=== PATIENT | female | born 1940 | race Caucasian/White ===

== ENCOUNTER → 2016-11-13 | Outpatient (CLI) | payer MEDICARE ==
--- NOTE | 2016-11-14 09:30 | RAD ---
EXAM DESCRIPTION: Pelvis CLINICAL HISTORY: 76 years Female, PAIN IN LEFT HIP COMPARISON: None. FINDINGS: Right total hip replacement is present with modest degenerative change of the left hip. The right pubic symphysis and pubic ramus is unremarkable with sclerosis and deformity and subtle lucency at the junction of the left pubic ramus and symphysis suggesting an incompletely healed fracture. Alignment is essentially anatomic. The bony pelvic ring is otherwise intact. IMPRESSION: Degenerative left hip with incompletely healed fracture at the junction of the left pubic ramus and symphysis pubis. Electronically signed by: Franklin Odom MD 11/14/2016 9:29 AM CDT
--- NOTE | 2016-11-14 09:30 | RAD ---
EXAM DESCRIPTION: Hip,Left 2 Views CLINICAL HISTORY: PAIN IN LEFT HIP COMPARISON: None Available. TECHNIQUE: AP/frog leg lateral FINDINGS: Mild hypertrophic degenerative lipping at the lateral and inferior margins of the femoral head is present with mild joint space narrowing and acetabular roof sclerosis consistent with degenerative disease. No fracture or dislocation is noted. Right hip is surgically replaced. The pubic ramus areas abnormal with sclerosis and very subtle deformity suggesting an incompletely healed fracture of the junction of the pubic ramus and the symphysis pubis. The ischium appears intact. IMPRESSION: Degenerative left hip without fracture with abnormal left symphysis pubis suggesting an incompletely healed fracture. Electronically signed by: Franklin Odom MD 11/14/2016 9:27 AM CDT
== END | disposition home or self-care (01) ==
LOC: RAD 09:34
PROVIDERS: ATTEND Orthopaedic Surgery
DX: M25.552 Pain in left hip (principal)

== ENCOUNTER 2016-11-21 05:55 | Day surgery (SDC) | payer MEDICARE, OTHER ==
[2016-11-21] MEDS ORDERED: LACTATED RINGERS 1,000 ML ONE (06:58)
[2016-11-21] MEDS ORDERED: methylPREDNISolone ACETATE 80 MG/ML VIAL ONE (07:22)
[2016-11-21] MEDS ORDERED: LIDOCAINE 1% 50 ML VIAL INJ ONE (07:22)
[2016-11-21] MEDS ORDERED: BUPIVACAINE 0.25% W/EPI 50 ML VIAL INJ ONE (07:22)
[2016-11-21] MEDS ORDERED: fentaNYL CITRATE INJ 50 MCG/ML AMP ONE (08:24)
[2016-11-21 09:13] VITALS: O2SAT 96
[2016-11-21 10:11] VITALS: BP 113/77; TEMP 97
[2016-11-21] MEDS ORDERED: PROPOFOL 200 MG/20 ML VIAL IV ONE (12:00)
[2016-11-21] MEDS ORDERED: LIDOCAINE 1% 10 ML VIAL INJ ONE (12:00)
--- NOTE | 2016-12-12 08:25 | OP ---
DATE OF PROCEDURE: 11/21/16 PREOPERATIVE DIAGNOSIS: 1. Hip osteoarthritis. POSTOPERATIVE DIAGNOSIS: 1. Hip osteoarthritis. PROCEDURE: 1. Injection under anesthesia. SURGEON: Marcus Rodriguez MD. HEAVY FORGING MACHINE OPERATOR: Carlos Villela CST, SA-C. ANESTHESIA: Conscious sedation. COMPLICATIONS: None. FINDINGS: Advanced arthritis of the hip. INDICATION: Ms. Frye has a history of hip pain with progressively worsening arthritis. Ms. Frye has had hip replacement done on the contralateral side. She complains of pain on a daily basis that disrupts her activities. She has requested injection. After discussing the risks, benefits and alternatives to that, the patient has given informed consent. PROCEDURE: The patient was brought to the Operating Room and placed in supine position. Sedation was administered. The groin was sterilely prepped. Following prepping and draping, an 18-gauge needle was passed under fluoroscopic imaging. Once the needle had been confirmed to be in the joint, a mixture of lidocaine and Depo-Medrol was injected. Following that, the needle was withdrawn. Pressure was held and dressing was placed. The patient was then taken back to the Day Surgery Unit. POSTOPERATIVE INSTRUCTIONS: The patient will be weight-bearing as tolerated on postoperative day 0. #[id number] MTDD
== END 2016-11-21 10:00 | disposition home or self-care (01) ==
LOC: AMB 05:55
PROVIDERS: ATTEND Orthopaedic Surgery
DX: M16.12 Unilateral primary osteoarthritis, left hip (principal); I10 Essential (primary) hypertension; I25.10 Atherosclerotic heart disease of native coronary artery without angina pectoris; K21.9 Gastro-esophageal reflux disease without esophagitis; J44.9 Chronic obstructive pulmonary disease, unspecified; F17.210 Nicotine dependence, cigarettes, uncomplicated; F32.9 Major depressive disorder, single episode, unspecified; Z96.641 Presence of right artificial hip joint; Z88.5 Allergy status to narcotic agent; Z88.8 Allergy status to other drugs, medicaments and biological substances; Z79.899 Other long term (current) drug therapy
CPT/HCPCS: 01200; 20610; 87070; J1030; J3010; J3490; J7120

== ENCOUNTER → 2017-06-28 | Outpatient (CLI) | payer MEDICARE, OTHER ==
--- NOTE | 2017-07-01 10:31 | CT ---
EXAM DESCRIPTION: Abdomen/Pelvis w/wo Contrast: Computed Tomography. CLINICAL HISTORY: HISTORY OF HEMATURIA COMPARISON: None. TECHNIQUE: Spiral-axial scans at 5.0 mm intervals through the abdomen and pelvis before and after standard dose nonionic IV contrast. No oral contrast. Coronal and sagittal 2.0 mm reconstructions. 5 mm Delayed helical-axial scans, liver through the pubic symphysis. No adverse reactions. Total Exam DLP 99.07 mGy - cm. This exam was performed according to our departmental CT dose-optimization program which includes automated exposure control, adjustment of the mA and/or kV according to patient size and/or use of iterative reconstruction technique; to reduce radiation dose to as low as reasonably achievable (ALARA). FINDINGS: Lung bases and pleura: Minimal patchy infiltrate in a tree-in-bud pattern in the left lower lobe. Liver, Stomach, Spleen, Adrenal Glands: Long axis right lobe liver 15.5 cm. Diffuse low-density. No focal lesions. Minimal distention of stomach with fluid. Other solid organs are negative. Pancreas, Gallbladder, Ducts: Gallbladder visualized. Dilated. Pancreas negative. Kidneys and Ureters: Lobulation of the cortex of the right kidney and multi-focal areas of thinning. Cyst upper poles of both kidneys. No stones hydronephrosis or perinephric fluid. Mesentery: The fluid in the pelvis but not ascites. No free air. No stranding. Aorta: Moderate to severe atherosclerotic calcification mid and distal with multiple areas of intimal wall thickening. Darker segment of wall thickening beginning at the level of the right renal artery extending inferiorly on the right lateral wall of the aorta. IVC filter tip apex at the level of the lor and intravenous into the medial liver. Small Soco minimal distention by gas proximally with fluid more distally. Question of mucosal wall thickening and distention of the distal small bowel. Terminal Ileum/Cecum: Minimal distention of the cecum by fecal matter. Minimal distention of the TI. Appendix not seen. Normal density of the surrounding fat. Colon: Distention and descending colon with fecal matter. Gas and fecal material in the transverse colon and descending colon. Moderate redundancy of the sigmoid colon. Pelvic Organs: Fluid in the cul-de-sac. Uterus is retroverted and deviated to the right of midline. Urinary bladder distended no definite stones. However only minimal contrast on delayed images. Pelvic organ evaluation is limited due to artifact from right total hip arthroplasty. Ovaries not well seen. Spine and Bony Pelvis: T11 to L4 dextroscoliosis. L4-5 spondylosis and posterior disc herniation or large bulge. Right foraminal stenosis. Large posterior L3-4 bulge. Degenerative changes and inferior right SI joint. Total hip arthroplasty with no bony complications. Narrowing left hip joint with subchondral cysts and degenerative changes in the left acetabulum with marginal spurs in the femoral head. Abdominal Wall/Back Soft Tissues: Small right inguinal fatty hernia not containing bowel. IMPRESSION: 1. Fecal obstipation proximal colon. Minimal distention of the distal small bowel by fluid, cannot exclude enteritis. Minimal gaseous distention proximal small bowel but no significant air-fluid levels. 2. Significant atherosclerotic calcification of the abdominal aorta with large thrombus or plaque on the right lateral wall of the aorta just below the right renal artery origin. Calcification mostly the major vessel ostia from the aorta. 3. IVC filter in a more superior location than customary, apex at the entrance to the liver. Correlate with clinical findings and prior procedure notes. 4. Multiple focal areas of cortical thinning in the right kidney to be due to prior renal infarcts or scarring from chronic infection. No stones or hydronephrosis bilaterally. Urinary bladder distended by urine with minimal contrast which limits evaluation of urinary bladder mucosa. 5. Retroverted uterus, fluid in the cul-de-sac. 6. Patchy aevp-ak-pmk-type infiltrative pattern in the left lower lobe of the lung. This is a nonspecific finding. Associated with chronic lung disease and some acute processes. Consider follow-up CT scan of the chest. 7. Dextroscoliosis thoracolumbar spine and spondylosis in the lumbar spine. Herniated L4-5 disc or large bulge with possible canal stenosis. Also possible right foraminal stenosis. Arthrosis in the left hip and minimal arthrosis right SI joint. 8. Steatosis of the liver but no significant enlargement. Electronically signed by: Carlos Tejada MD 07/01/2017 10:30 AM MATERIAL ANALYST Workstation: [id number]
== END ==
LOC: CT 09:21
PROVIDERS: ATTEND Urology
DX: R31.29 Other microscopic hematuria (principal); K59.09 Other constipation; I70.0 Atherosclerosis of aorta; N85.4 Malposition of uterus; M51.26 Other intervertebral disc displacement, lumbar region; K76.0 Fatty (change of) liver, not elsewhere classified

== ENCOUNTER → 2017-09-03 | Outpatient (CLI) | payer MEDICARE, OTHER ==
--- NOTE | 2017-09-03 09:50 | RAD ---
EXAM DESCRIPTION: Pelvis CLINICAL HISTORY: 77 years Female, HIP PN COMPARISON: November 13, 2016 FINDINGS: A single view of the pelvis demonstrates remote right hip replacement and moderate degenerative changes involving the left hip. The bony pelvic ring appears intact. An old healed fracture of the left side of the pubis is noted with anatomic alignment. No soft tissue masses noted. IMPRESSION: Right hip replacement and moderate degenerative changes left hip. Electronically signed by: Franklin Odom MD 09/03/2017 9:49 AM CDT
--- NOTE | 2017-09-03 09:53 | RAD ---
EXAM DESCRIPTION: Hip,Left 2 Views CLINICAL HISTORY: HIP PN COMPARISON: November 13, 2016 TECHNIQUE: AP/frog leg lateral FINDINGS: Two views of the left hip demonstrate mild joint space narrowing and sclerosis and marginal osteophyte formation, little changed from November 13, 2016. Current pelvic examination suggested a healed left pubic ramus fracture from previous injury but the appearance is more normal on today's study suggesting this simply represents an anatomic variation compared to the right rather than an old injury. No hip fracture or dislocation is seen. No soft tissue mass is noted. IMPRESSION: Moderately degenerative left hip with osteophyte formation without acute injury and no definite old abnormality of the left pubis noted on additional imaging of the hip. Electronically signed by: Franklin Odom MD 09/03/2017 9:52 AM CDT
== END ==
LOC: RAD 08:24
PROVIDERS: ATTEND Orthopaedic Surgery
DX: M25.552 Pain in left hip (principal); Z96.641 Presence of right artificial hip joint

== ENCOUNTER 2017-12-17 05:29 | Day surgery (SDC) | payer MEDICARE, OTHER ==
[2017-12-17] MEDS ORDERED: PROPARACAINE 0.5% OPHTH SOL 15 ML BTTL ONE (05:56)
[2017-12-17] MEDS ORDERED: TROP 1%/CYCLOPEN 1%/PHENYL 2% DROPS ONE (05:56)
[2017-12-17] MEDS ORDERED: MIDAZOLAM INJ 2 MG/2 ML VIAL ONE (08:12)
[2017-12-17] MEDS ORDERED: LIDOCAINE 1% PF 2 ML AMP INJ ONE ×2 (08:50→09:07)
[2017-12-17] MEDS ORDERED: PROPARACAINE 0.5% OPHTH SOL 15 ML BTTL LEFT_EYE ONE (08:50)
[2017-12-17] MEDS ORDERED: BRIMONIDINE 0.2% OPHTH DROPS LEFT_EYE ONE ×3 (08:51→09:17)
[2017-12-17] MEDS ORDERED: TOBRAMYCIN SULF 0.3 % OPHT SOL 1 DROP LEFT_EYE ONE ×3 (08:51→09:17)
[2017-12-17] MEDS ORDERED: DEXAMETHASONE 0.1% OPHTH SOL 1 DROP LEFT_EYE ONE ×3 (08:51→09:17)
== END 2017-12-17 10:15 | disposition home or self-care (01) ==
LOC: AMB 05:29
PROVIDERS: ATTEND Ophthalmology
DX: H25.12 Age-related nuclear cataract, left eye (principal); K21.9 Gastro-esophageal reflux disease without esophagitis; J44.9 Chronic obstructive pulmonary disease, unspecified; G89.29 Other chronic pain; Z79.899 Other long term (current) drug therapy
CPT/HCPCS: 00142; 66984; J2250

== ENCOUNTER 2017-12-31 06:13 | Day surgery (SDC) | payer MEDICARE, OTHER ==
[2017-12-31] MEDS ORDERED: TOBRAMYCIN SULF 0.3 % OPHT SOL 1 DROP OPHTH ONE (10:00)
[2017-12-31] MEDS ORDERED: PROPARACAINE 0.5% OPHTH SOL 15 ML BTTL ONE (10:14)
[2017-12-31] MEDS ORDERED: TROP 1%/CYCLOPEN 1%/PHENYL 2% DROPS ONE (10:14)
== END 2017-12-31 12:02 | disposition home or self-care (01) ==
LOC: AMB 06:13
PROVIDERS: ATTEND Ophthalmology
DX: H26.491 Other secondary cataract, right eye (principal)

== ENCOUNTER → 2018-08-29 | Outpatient (CLI) | payer MEDICARE, OTHER ==
--- NOTE | 2018-08-30 08:35 | RAD ---
EXAM DESCRIPTION: Pelvis CLINICAL HISTORY: 78 years Female, M25.552 COMPARISON: None. FINDINGS: Degenerative changes are noted at L4-5 disc level. Sacrum is obscured by overlying fecal material and bowel gas. Other bones of the pelvic ring appear intact. Total right hip arthroplasty. Advanced degenerative osteoarthritic narrowing of the left hip is seen with prominent apron osteophyte of the proximal left femur at the head neck junction. Irregularity at the greater tuberosity of the left hip is thought to be enthesopathy rather than a avulsion injury. IMPRESSION: Degenerative changes in the lower L-spine and left hip. Electronically signed by: Aren Elise MD 08/30/2018 8:32 AM CDT
--- NOTE | 2018-08-30 08:37 | RAD ---
EXAM DESCRIPTION: Hip,Left 2 Views CLINICAL HISTORY: 78 years, Female, M25.552 COMPARISON: Previous x-ray left hip September 03, 2017 TECHNIQUE: AP and frog leg lateral views of the left hip FINDINGS: 2 views of the left hip reveal no fracture or dislocation. No lytic bone lesion. Marked degenerative joint space narrowing consistent with high-grade cartilage loss of osteoarthrosis. Prominent apron osteophyte of the left femoral head neck junction. Degenerative spurring at the lateral margin of the acetabulum. Compared to previous study, the findings are stable. IMPRESSION: Degenerative osteoarthrosis of the left hip. Electronically signed by: Aren Elise MD 08/30/2018 8:33 AM CDT
== END ==
LOC: RAD 09:07
PROVIDERS: ATTEND Orthopaedic Surgery
DX: Z01.818 Encounter for other preprocedural examination (principal); M16.12 Unilateral primary osteoarthritis, left hip; M25.552 Pain in left hip; Z96.641 Presence of right artificial hip joint

== ENCOUNTER 2018-09-10 05:48 | Day surgery (SDC) | payer MEDICARE, OTHER ==
--- NOTE | 2018-09-06 09:53 | HP ---
CHIEF COMPLAINT: Left hip pain. HISTORY OF PRESENT ILLNESS: Lubna is a 78-year-old female with a history of pain in the left hip. She has had right total hip replacement. Her pain is secondary to discomfort from arthritis. She denies any radiation of pain, trauma, or neurologic symptoms. She has had injection into the hip joint and is requesting repeat injection under anesthesia. After discussing the risks, benefits and alternatives to that, she has given informed consent. PAST SURGICAL HISTORY: 1. Total hip arthroplasty. MEDICATIONS: 1. Seroquel. 2. Ramipril. 3. Naprosyn. 4. Motrin. ALLERGIES: NO KNOWN DRUG ALLERGIES. FAMILY HISTORY: None pertinent to today's complaint. SOCIAL HISTORY: The patient does not drink, smoke or use any illicit drugs. REVIEW OF SYSTEMS: Negative except as indicated in the History of Present Illness. PHYSICAL EXAMINATION: VITAL SIGNS: Blood pressure 118/62. Pulse 91. Height 5'7". Weight 114 pounds. MENTAL STATUS: The patient is awake, alert, and is able to give a good history and participate in the physical. The patient is oriented to person, place and time. SKIN: Normal tone and turgor. MUSCULOSKELETAL: She has severe tenderness to flexion in internal rotation. She is limited to about 5 degrees of internal rotation today. External rotation is to 60 degrees. She has pain with abduction, but has passive abduction to 40 degrees. She has intact sensation. The extremity is warm and well perfused. She does walk with a slight antalgic gait. IMAGING: X-rays show arthritis. ASSESSMENT: 1. Osteoarthritis. PLAN: The plan at this point is for injection under anesthesia. We have discussed the risks, benefits, and alternatives to that and the patient has given informed consent. #[id number] [facility]
[2018-09-10] MEDS ORDERED: LACTATED RINGERS 1,000 ML ONE (06:06)
[2018-09-10] MEDS ORDERED: LIDOCAINE 1% 10 ML VIAL INJ ONE (07:00)
[2018-09-10] MEDS ORDERED: PROPOFOL 200 MG/20 ML VIAL IV ONE (07:00)
[2018-09-10] MEDS ORDERED: KETOROLAC TROMETHAMINE INJ 30 MG/ML VIAL ONE (07:00)
[2018-09-10] MEDS ORDERED: methylPREDNISolone ACETATE 80 MG/ML VIAL ONE (08:16)
[2018-09-10] MEDS ORDERED: BUPIVACAINE 0.25% INJ 30 ML VIAL INJ ONE (08:16)
[2018-09-10] MEDS ORDERED: LIDOCAINE 1% W/ EPINEPHRINE 20 ML VIAL INJ ONE (08:16)
[2018-09-10 13:02] VITALS: BP 122/78; TEMP 97.6; O2SAT 98
--- NOTE | 2018-09-11 08:13 | OP ---
DATE OF PROCEDURE: 09/10/18 PREOPERATIVE DIAGNOSIS: 1. Left hip osteoarthritis. POSTOPERATIVE DIAGNOSIS: 1. Left hip osteoarthritis. PROCEDURE: 1. Injection of left hip under anesthesia. SURGEON: Marcus Rodriguez MD. TRANSMISSION AND PROTECTION ENGINEER: Carlos Villela CST, SA-C. ANESTHESIA: Conscious sedation. COMPLICATIONS: None. FINDINGS: Arthritis of the hip. INDICATION: Ms. Frye has a history of severe pain in the hip secondary to arthritis. She has had contralateral total hip arthroplasty. Because of her ongoing pain, she has requested injection of the hip that she had previously responded to. After discussing the risks, benefits and alternatives to that, the patient has given informed consent for that. PROCEDURE: The patient was brought to the Operating Room and placed in supine position. Conscious sedation was administered and the leg was flexed, abducted and externally rotated. The groin was prepped and fluoroscopic imaging was used to confirm needle placement into the hip joint through a medial portal. Once placement had been confirmed, a combination of lidocaine and Depo-Medrol were injected into the joint. After injection, the needle was withdrawn. Pressure was held on the injection site. A sterile band-aid was placed. The patient was then taken back to the Day Surgery Unit. POSTOPERATIVE PLAN: The patient will be weight-bearing as tolerated. The patient will followup with us in about 2 weeks. #[id number] MTDD
== END 2018-09-10 12:00 | disposition home or self-care (01) ==
LOC: AMB 05:48
PROVIDERS: ATTEND Orthopaedic Surgery
DX: M16.12 Unilateral primary osteoarthritis, left hip (principal); I10 Essential (primary) hypertension; J44.9 Chronic obstructive pulmonary disease, unspecified; F17.210 Nicotine dependence, cigarettes, uncomplicated; Z88.5 Allergy status to narcotic agent; Z96.641 Presence of right artificial hip joint; Z79.899 Other long term (current) drug therapy
CPT/HCPCS: 01200; 20610; 76000; 80307; J1030; J1885; J3490; J7120